=== PATIENT | male | born 1945 | race Caucasian/White ===

== ENCOUNTER → 2019-11-28 | Emergency (ER) | payer MEDICARE | END | disposition left against medical advice (07) | LOC: ER 23:36 | DX: R68.83 Chills (without fever) (principal); Z53.21 Procedure and treatment not carried out due to patient leaving prior to being seen by health care provider ==

== ENCOUNTER 2025-06-16 20:08 | Emergency (ER) | payer MEDICARE ==
[~2025-06-16] VITALS: Ht 182.9 cm; Wt 113.0 kg
[2025-06-16] MEDS ORDERED: SODIUM BICARB 8.4% 50Meq/50ml SYR INJ IV ONE (20:09)
[2025-06-16] MEDS ORDERED: EPINEPHrine HCL 1 MG/10 ML SYRG IV ONE (20:09)
[2025-06-16] MEDS ORDERED: CALCIUM CHLOR(10%) 100MG/ML 10ML SYRINGE IV ONE (20:09)
[2025-06-16 20:10] VITALS: TEMP 97.3
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
[2025-06-16] MEDS: EPINEPHrine HCL 1 MG/10 ML SYRG ONE ×2 (20:32)
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
== END 2025-06-16 20:32 ==
LOC: EDUNIT# 20:08 → EDBD 20:08 → ER 20:08
DX: I46.9 Cardiac arrest, cause unspecified (principal); I49.01 Ventricular fibrillation; F17.200 Nicotine dependence, unspecified, uncomplicated; Z79.899 Other long term (current) drug therapy
CPT/HCPCS: 31500; 82947; 92950; 99285; J0169; J3475